=== PATIENT | female | born 1985 | race Caucasian/White ===

== ENCOUNTER 2017-03-19 10:32 | Emergency (ER) | payer OTHER ==
[~2017-03-19] VITALS: Ht 162.6 cm; Wt 67.1 kg
[~2017-03-19 10:32] MED LIST: BUPROPION XL150 MG PO; ELAVIL25 MG PO; FETZIMA PO; VENLAFAXINE PO; VIIBRYD20 MG PO; Z.0.HUMALOG100 UNIT/ SQ; Z.0.METOPROLOL TART2 PO; Z.0.REGLAN5 MG PO; Z.0.VERAPAMIL ER240 PO
[2017-03-19] MEDS ORDERED: ONDANSETRON HCL INJ 2 MG/ML VIAL IV STA (11:36)
[2017-03-19] MEDS ORDERED: SODIUM CHLORIDE 0.9% 1000ML 1,000 ML IV STA (11:36)
[2017-03-19] MEDS ORDERED: KETOROLAC TROMETHAMINE 30 MG/ML VIAL IV STA (11:36)
== END 2017-03-19 15:00 | disposition short-term general hospital (02) ==
LOC: ER 10:32
DX: R11.10 Vomiting, unspecified (principal)

== ENCOUNTER → 2018-05-13 | Day surgery (SDC) | payer OTHER ==
[2018-05-10 15:37] LABS: BLOOD UREA NITROGEN 11 mg/dL (7-26); BUN/CREATININE RATIO 12 (6-25); CALCIUM 9.8 mg/dL (8.4-10.2); CARBON DIOXIDE 25 mmol/L (22-29); CHLORIDE 99 mmol/L (98-107); CREATININE, SERUM 0.95 mg/dL (0.57-1.11); EST GLOMERULAR FILTRATION RATE > 60 ML/MIN (60-); GLUCOSE 301 mg/dL (74-118); SODIUM 135 mmol/L (136-145)
[~2018-05-13] MED LIST changes: +DEXAMETHASONE SOD PHOS INJ 4 MG/ML VIAL ONE; +DIPHENHYDRAMINE HCL INJ 50 MG/ML VIAL ONE; +FENTANYL CITRATE/PF 100MCG/2 ML INJ ONE; +GABAPENTIN300 MG PO; +HUMALOG PUMP; +L-METHYLFOLATE15 MG PO; +LIDOCAINE HCL 2% LOCAL INJ 5 ML SDV VIAL INJ ONE; +MEPERIDINE HCL INJ 25 MG/ML VIAL ONE; +MIDAZOLAM HCL 2 MG/2 ML VIAL ONE; +ONDANSETRON HCL INJ 2MG/ML 2ML 2 MG/ML VIAL ONE; +PROPOFOL IV EMULSION 10 MG/ML 20 ML VIAL ONE; +SEVOFLURANE INHAL SOLN 250 ML PEN BTL ONE; +WELLBUTRIN SR150 MG PO; +ZOLOFT50 MG PO; +[UNRECOGNIZED DRUG - OTHER] PO
[2018-05-13 09:30] VITALS: BP 129/86
--- NOTE | 2018-05-16 08:57 | Operative Report ---
DATE OF PROCEDURE: 05/13/2018 SURGEON: Mauri Stevens MD PREOPERATIVE DIAGNOSES: Right index finger trigger, right index finger arthrofibrosis. POSTOPERATIVE DIAGNOSES: Right index finger trigger, right index finger arthrofibrosis. OPERATION/PROCEDURE PERFORMED: The patient underwent a right index finger trigger release at the A1 kandy and a manipulation under anesthesia of the right index finger. DRUM OPERATOR: There was no trust operations assistant. ANESTHESIA: General endotracheal intubation anesthesia. IV FLUIDS: Per the Anesthesia record. BRIEF DISCUSSION OF THE PATIENT'S OPERATIVE PROCEDURE: Ms. Navarro was taken to the operating room, placed in the supine position on the operating table. Following the induction of general anesthesia as well as endotracheal intubation, the patient's right index finger was examined under anesthesia. She was found to have mild extension lag at the PIP joint as well as stiffness when attempting to flex the finger. She had a palpable nodule at the level of the A1 kandy. There was mild catching and locking of the finger with passive flexion of the finger. The patient's upper extremity was prepped and draped in standard surgical fashion. Incision was created directly over the level of the A1 kandy for the index finger. This incision was carried through skin only. Blunt dissection was deepened to the level of the flexor tendon. Ragnell retractors were used to protect the neurovascular structures. The A1 kandy was identified and divided in line with the skin incision. Examination of the underlying tendon demonstrated a focal area of flexor tenosynovitis. The finger was then manipulated under anesthesia and fibrotic bands were felt to give away providing improved motion of the finger both in flexion and extension. The wound was copiously irrigated and closed in the single layer of fashion. Sterile dressings were applied and the patient was then awakened and taken to the Postanesthesia Care Unit in stable condition. MD TAWANDA BrunsonR/MODL /[id number]
== END | disposition home or self-care (01) ==
LOC: OR 05:12
PROVIDERS: ATTEND Specialist
DX: M65.321 Trigger finger, right index finger (principal); M24.641 Ankylosis, right hand; J45.909 Unspecified asthma, uncomplicated; I10 Essential (primary) hypertension; I34.1 Nonrheumatic mitral (valve) prolapse; R00.1 Bradycardia, unspecified; E11.9 Type 2 diabetes mellitus without complications; F41.9 Anxiety disorder, unspecified; F32.9 Major depressive disorder, single episode, unspecified; Z88.1 Allergy status to other antibiotic agents; Z88.0 Allergy status to penicillin; Z01.812 Encounter for preprocedural laboratory examination; Z79.4 Long term (current) use of insulin; Z87.891 Personal history of nicotine dependence
CPT/HCPCS: 26055; 36415 ×2; 80048; 82948; 84702; J1100; J1200; J2001; J2175; J2250; J2405; J2704

== ENCOUNTER 2021-09-16 15:16 | Emergency (ER) | payer BC, OTHER ==
[~2021-09-16] VITALS: Ht 162.6 cm; Wt 72.6 kg
[~2021-09-16 15:16] MED LIST changes: -DEXAMETHASONE SOD PHOS INJ 4 MG/ML VIAL ONE; -DIPHENHYDRAMINE HCL INJ 50 MG/ML VIAL ONE; -FENTANYL CITRATE/PF 100MCG/2 ML INJ ONE; -LIDOCAINE HCL 2% LOCAL INJ 5 ML SDV VIAL INJ ONE; -MEPERIDINE HCL INJ 25 MG/ML VIAL ONE; -MIDAZOLAM HCL 2 MG/2 ML VIAL ONE; -ONDANSETRON HCL INJ 2MG/ML 2ML 2 MG/ML VIAL ONE; -PROPOFOL IV EMULSION 10 MG/ML 20 ML VIAL ONE; -SEVOFLURANE INHAL SOLN 250 ML PEN BTL ONE
[2021-09-16] MEDS ORDERED: PREDNISONE20 MG PO (16:27)
[2021-09-16] MEDS ORDERED: DIFLUCAN100 MG PO (16:37)
== END 2021-09-16 16:41 | disposition home or self-care (01) ==
LOC: FSED 15:23
DX: M54.12 Radiculopathy, cervical region (principal); I10 Essential (primary) hypertension; E10.9 Type 1 diabetes mellitus without complications
CPT/HCPCS: 99282

== ENCOUNTER → 2021-09-25 | Day surgery (SDC) | payer BC, OTHER ==
[2021-09-23 14:28] LABS: BASOPHILS % 0.5 % (0.0-1.0); EOSINOPHILS # (AUTO) 0.1 (0.0-0.4); EOSINOPHILS % 1.1 % (0.0-6.0); HEMATOCRIT 38.9 % (34.2-44.1); LYMPHOCYTES # (AUTO) 2.4 (1.0-3.2); LYMPHOCYTES % 30.1 % (18.0-39.1); MEAN CORPUSCULAR HGB CONC 33.4 g/dL (31-35); MEAN CORPUSCULAR VOLUME 92.6 fL (81-99); MONOCYTES # (AUTO) 0.4 (0.2-0.8); MONOCYTES % 5.3 % (4.4-11.3); NEUTROPHILS % 62.7 % (38.7-80.0); PLATELET COUNT 283 x10e3/uL (140-360); RED CELL DISTRIBUTION WIDTH 11.8 % (11.7-14.4)
[~2021-09-25] MED LIST changes: +BUPIVACAINE HCL 0.25% 10ML MPF VIAL INJ ONE; +CLINDAMYCIN PHOS 900MG/ 50ML 50 ML IV ONE; +DEXAMETHASONE SOD PHOS INJ 4 MG/ML SDV ONE; +DIFLUCAN100 MG PO; +FENTANYL CITRATE/PF 100MCG/2 ML INJ ONE; +LIDOCAINE HCL 2% LOCAL INJ 5 ML SDV VIAL INJ ONE; +MIDAZOLAM HCL 2 MG/2 ML VIAL ONE; +ONDANSETRON HCL INJ 2MG/ML 2ML 2 MG/ML VIAL ONE; +PHENYLEPHRINE HCL 1% 10 MG/ML VIAL ONE; +POVIDONE IODINE 0.05% 0.05 % ML PO ONE; +PREDNISONE20 MG PO; +PROPOFOL IV EMULSION 10 MG/ML 20 ML VIAL ONE; +SEVOFLURANE INHAL SOLN 250 ML PEN BTL ONE
[2021-09-25 09:45] VITALS: BP 117/79
== END | disposition home or self-care (01) ==
LOC: OR 05:44
PROVIDERS: ATTEND Specialist
DX: M65.322 Trigger finger, left index finger (principal); M65.842 Other synovitis and tenosynovitis, left hand; S83.222A Peripheral tear of medial meniscus, current injury, left knee, initial encounter; S83.221A Peripheral tear of medial meniscus, current injury, right knee, initial encounter; J45.909 Unspecified asthma, uncomplicated; I10 Essential (primary) hypertension; I34.1 Nonrheumatic mitral (valve) prolapse; E11.9 Type 2 diabetes mellitus without complications; G62.9 Polyneuropathy, unspecified; K31.84 Gastroparesis; K21.9 Gastro-esophageal reflux disease without esophagitis; H91.90 Unspecified hearing loss, unspecified ear; F41.9 Anxiety disorder, unspecified; X58.XXXA Exposure to other specified factors, initial encounter; Z88.1 Allergy status to other antibiotic agents; Z88.0 Allergy status to penicillin; Z01.810 Encounter for preprocedural cardiovascular examination; Z01.812 Encounter for preprocedural laboratory examination; Z20.822 Contact with and (suspected) exposure to COVID-19; Z79.899 Other long term (current) drug therapy; Z79.4 Long term (current) use of insulin; Z96.41 Presence of insulin pump (external) (internal); Z87.891 Personal history of nicotine dependence; Z86.16 Personal history of COVID-19
CPT/HCPCS: 0223U; 26145; 36415 ×2; 82948; 84702; 85025; 93005; J1100; J2001; J2250; J2370; J2405; J2704; J3010